=== PATIENT | male | born 1995 | race American Indian/Alaskan Native ===

== ENCOUNTER 2016-10-14 00:09 | Emergency (ER) | payer SELFPAY ==
[2016-10-14] MEDS ORDERED: KETALAR ONE (00:37)
[2016-10-14] MEDS ORDERED: ZOFRAN IV ONE (00:37)
[2016-10-14] MEDS ORDERED: NACL 0.9% 500 ML 500 ML IV ONE (00:37)
[2016-10-14] MEDS ORDERED: DIPRIVAN 10 MG/ML IV ONE ×3 (00:37→00:50)
[2016-10-14] MEDS ORDERED: KETALAR IV ONE (00:37)
--- NOTE | 2016-10-14 00:39 | Emergency Department Report ---
Upper Extremity - [facility] Chief Complaint: Extremity Injury, Upper Stated Complaint: SHOULDER DISLOCATION Time Seen by Provider: 10/14/16 00:28 Upper Extremity: Right Shoulder Occurred When: Today Mechanism: Twist Severity: severe Symptoms: Yes Pain with Movement, Yes Deformity, Yes Limited Range of Movement, No Numbness, No Weakness, No Swelling, No Bruising/Ecchymosis, No Laceration or Abrasion Other History: This is a 20-year-old male. He is left-hand dominant. He has a history of recurrent shoulder dislocations. He reports for spontaneous shoulder dislocations within the past year. He presents to the ER with right- sided shoulder dislocation. Patient reports that he got up, and felt his arm popped out. There is no trauma. ED Review of Systems ROS: Stated complaint: SHOULDER DISLOCATION Other details as noted in HPI ED Past Medical Hx - Past Medical History Previous Medical History?: Yes Additional medical history: RIGHT SHOULDER DISLOCATION - Surgical History Past Surgical History?: No - Social History Smoking Status: Never Smoker Substance Use Type: None - Medications Home Medications: Home Medications Medication Instructions Recorded Confirmed Last Taken Type Ibuprofen [Motrin] 600 mg PO Q8H PRN #30 tablet 10/14/16 Unknown Rx Upper Extremity Exam - Exam General: Vital signs noted. No distress. Alert and acting appropriately. Head and Torso: No HEENT Abnormality, No Neck Tenderness, No Chest/Lungs Abnormality, No Abdominal Tenderness, No Back Tenderness Shoulder Exam: Yes Shoulder Tenderness, Yes Shoulder Deformity, No Clavicle Tenderness, No Normal Range of Motion in Shoulder, No AC Joint Tenderness Arm Exam: No Arm/Humerus Tenderness, No Arm Deformity Elbow: Yes Normal Range of Motion in Elbow, No Elbow Tenderness, No Elbow Deformity Forearm: No Forearm Tenderness, No Forearm Deformity, No Pain with Pronation, No Pain with Supination Wrist: Yes Normal ROM in Wrist, No Wrist Tenderness, No Wrist Deformity, No Snuffbox Tenderness, No Pain with Axial Thumb Compression Hand: Yes Normal ROM in Digit(s), No Hand Tenderness, No Hand Deformity, No Digit Tenderness, No Digit(s) Deformity, No Tendon Dysfunction CMS Exam: No Broken Skin, No Normal Distal Pulses, No Normal Capillary Refill, No Normal Distal Sensation ED Course Vital Signs 10/14/16 00:16 Temperature 97.3 F L Pulse Rate 72 Respiratory 18 Rate Blood Pressure 106/65 O2 Sat by Pulse 98 Oximetry - Reevaluation(s) Reevaluation #1: 10/14/16 01:09 differential diagnosis: Shoulder dislocation Assessment and plan: 20-year-old male with recurrent spontaneous right sided shoulder dislocation. He is afebrile, with reassuring vital signs, and on his initial examination, he has 2+ pulses noted in the bilateral upper extremities, sensation is intact to the deltoid, median, radial, ulnar distribution. He is verbally and written consented for moderate sedation with closed reduction. He is given ketamine, and propofol as per sedation sheet, and sedation time is from 12:54 AM TO 12:56 AM. The shoulder was reduced by myself with 1 attempt, with no obvious difficulty, and the patient tolerated the procedure well. He is currently sedated, and on a monitor. Reevaluation #2: 10/14/16 02:12 patient is reexamined. Range of motion remains intact in the hand and wrist. Sensation and strength remain intact. He will be discharged with his girlfriend. Vital signs stable. - Moderate Sedation Indications: diagnostic imaging proced Presedation Evaluation: ASA 1 ASA Class: I Mallampati Airway Score: 1 Preparation: lunchroom monitor applied, pulse oximeter, capnometry used, supplemental O2 applied, suction/airway equipment at bedside, IV secured Ketamine: IV Ketamine Dose: 30 IV Propofol Dose (mgs): 50 Complications: none Patient Tolerated Procedure: well - Orthopedic Joint Reduction Joint #1 Consent Obtained: verbal consent, written consent, emergent situation Time Out Performed: Yes Side: right Joint Reduction Location: shoulder Analgesia: moderate sedation Shoulder Technique Used (if applicable): scapula manipulation Post-Reduction Neuro Exam: intact Post-Reduction Vascular Exam: intact Post Reduction X-Ray Obtained: Yes Post Reduction X-Ray Results: reduced Splint Applied: Yes Patient Tolerated Procedure: well ED Medical Decision Making - Lab Data Vital Signs 10/14/16 10/14/16 10/14/16 00:16 00:54 00:56 Temperature 97.3 F L Pulse Rate 72 Pulse Rate [ 86 Intra-Procedure ] Pulse Rate [Pre 84 -Procedure] Respiratory 18 Rate Respiratory 20 Rate [Intra- Procedure] Respiratory 20 Rate [Pre- Procedure] Blood Pressure 106/65 Blood Pressure 121/76 [Intra- Procedure] Blood Pressure [Left] Blood Pressure 110/67 [Pre-Procedure] O2 Sat by Pulse 98 Oximetry O2 Sat by Pulse 98 Oximetry [ Intra-Procedure ] O2 Sat by Pulse 99 Oximetry [Pre- Procedure] 10/14/16 10/14/16 10/14/16 01:00 01:15 01:30 Temperature Pulse Rate 75 76 71 Pulse Rate [ Intra-Procedure ] Pulse Rate [Pre -Procedure] Respiratory 20 10 L 8 L Rate Respiratory Rate [Intra- Procedure] Respiratory Rate [Pre- Procedure] Blood Pressure Blood Pressure [Intra- Procedure] Blood Pressure 106/63 123/68 105/63 [Left] Blood Pressure [Pre-Procedure] O2 Sat by Pulse 98 98 99 Oximetry O2 Sat by Pulse Oximetry [ Intra-Procedure ] O2 Sat by Pulse Oximetry [Pre- Procedure] 10/14/16 10/14/16 01:39 02:35 Temperature Pulse Rate 85 68 Pulse Rate [ Intra-Procedure ] Pulse Rate [Pre -Procedure] Respiratory 12 16 Rate Respiratory Rate [Intra- Procedure] Respiratory Rate [Pre- Procedure] Blood Pressure Blood Pressure [Intra- Procedure] Blood Pressure 96/50 [Left] Blood Pressure [Pre-Procedure] O2 Sat by Pulse 100 Oximetry O2 Sat by Pulse Oximetry [ Intra-Procedure ] O2 Sat by Pulse Oximetry [Pre- Procedure] - Radiology Data Radiology results: image reviewed interpreted by me: X-ray #1 demonstrates right-sided shoulder dislocation. X-ray #2 demonstrates appropriate reduction of shoulder dislocation. Critical care attestation.: If time is entered above; I have spent that time in minutes in the direct care of this critically ill patient, excluding procedure time. ED Disposition Clinical Impression: Shoulder dislocation Disposition: DC-01 TO HOME OR SELFCARE Is pt being admited?: No Does the pt Need Aspirin: No Condition: Stable Instructions: Shoulder Dislocation (ED) Additional Instructions: Shoulder sling should stay on the right upper extremity until cleared by an orthopedic surgeon or primary care doctor. With multiple recurrent shoulder dislocations, the patient is at risk for ligamentous and soft tissue injury. Follow-up with an orthopedic surgeon within the next week. Dr. Pagan is a local orthopedic surgeon. Return to the ER right away with new pain, worsened pain, migration of pain, fevers, chills, weakness, numbness, confusion, chest pain or shortness of breath. Take acetaminophen every 4 hours as needed for pain, this can be alternated with ibuprofen every 6 hours with food as needed for pain. Prescriptions: Ibuprofen [Motrin] 600 mg PO Q8H PRN #30 tablet PRN Reason: Pain Referrals: ALCON PAGAN MD [Staff Physician] - 3-5 Days Forms: Work/School Release Form(ED)
[2016-10-14 02:45] VITALS: BP 96/50
--- NOTE | 2016-10-14 07:41 | XRay Report ---
Right shoulder: Pain, deformity AP and lateral projections included. There is an anterior dislocation of the humerus head. No fracture deformity identified. Right shoulder: Postreduction. AP view view. The humerus is well-positioned in the glenoid fossa. No fracture deformity noted.
== END 2016-10-14 02:40 | disposition home or self-care (01) ==
LOC: ED 00:09
DX: S43.004A Unspecified dislocation of right shoulder joint, initial encounter (principal); X58.XXXA Exposure to other specified factors, initial encounter; Y93.89 Activity, other specified; Y99.9 Unspecified external cause status; Y92.89 Other specified places as the place of occurrence of the external cause
CPT/HCPCS: 23650; 73020; 73030; 96374; 96375; 99285; J2405; J2704; J7040

== ENCOUNTER 2017-04-09 01:52 | Emergency (ER) | payer OTHER ==
[2017-04-09] MEDS ORDERED: TORADOL IV ONE (03:15)
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
--- NOTE | 2017-04-09 03:32 | XRay Report ---
FINAL REPORT EXAM: XR SHOULDER 2+V RT HISTORY: Injury COMPARISON: None available. FINDINGS: Two views of right shoulder obtained. There is anterior inferior dislocation of the humeral head. Mild Hill-Sachs deformity. Glenoid rim is grossly preserved. AC joint preserved. IMPRESSION: Anterior inferior dislocation of the humeral head with mild Hill-Sachs deformity.
[2017-04-09] MEDS ORDERED: TORADOL ONE (03:40)
[2017-04-09] MEDS ORDERED: AMIDATE IV ONE ×2 (03:52→04:01)
[2017-04-09] MEDS ORDERED: NACL 0.9% 1000 ML 1,000 ML ONE (05:17)
[2017-04-09 06:01] VITALS: BP 102/63
[2017-04-09] MEDS ORDERED: NACL 0.9% 1000 ML 1,000 ML IV ONE (06:01)
--- NOTE | 2017-04-09 07:21 | XRay Report ---
FINAL REPORT PROCEDURE: XR SHOULDER 1V RT TECHNIQUE: RIGHT shoulder radiograph, single frontal view. HISTORY: status post reduction COMPARISON: No prior studies are available for comparison. FINDINGS: Fracture(s): None. Joint space(s): Normal. Soft tissues: Normal. Bone mineralization: Normal. Foreign bodies: None. IMPRESSION: Normal alignment of the glenohumeral joint. There is no fracture or dislocation.
== END 2017-04-09 06:34 | disposition home or self-care (01) ==
LOC: ED 01:52
DX: S43.004A Unspecified dislocation of right shoulder joint, initial encounter (principal); X58.XXXA Exposure to other specified factors, initial encounter; Y93.89 Activity, other specified; Y92.89 Other specified places as the place of occurrence of the external cause; Y99.8 Other external cause status
CPT/HCPCS: 23650; 73020; 73030; 96361; 96374; 96375; 99283; J1885; J7030

== ENCOUNTER 2017-11-09 10:19 | Emergency (ER) | payer OTHER ==
--- NOTE | 2017-11-09 11:26 | Emergency Department Report ---
Upper Extremity - HPI Chief Complaint: Shoulder Injury Stated Complaint: DISLOCATED RIGHT SHOULDER Time Seen by Provider: 11/09/17 11:21 Upper Extremity: Right Shoulder Occurred When: Today Mechanism: Fall Severity: severe Symptoms: Yes Pain with Movement, Yes Deformity, Yes Limited Range of Movement, No Numbness, No Weakness, No Swelling, No Bruising/Ecchymosis, No Laceration or Abrasion Other History: She is a 21-year-old male who presents to emergency room with complaints of right shoulder pain. Patient states his right shoulder is dislocated. Patient has had this 6-7 times in the past. Patient states the pain is a 10 out of 10. Patient describes the pain as a sharp pain and is nonradiating. Patient denies allergies to medications. Patient denies ever physically physical symptoms ED Review of Systems ROS: Stated complaint: DISLOCATED RIGHT SHOULDER Other details as noted in HPI Constitutional: denies: chills, fever Eyes: denies: eye pain, eye discharge, vision change ENT: denies: ear pain, throat pain Respiratory: denies: cough, shortness of breath, wheezing Cardiovascular: denies: chest pain, palpitations Endocrine: no symptoms reported Gastrointestinal: denies: abdominal pain, nausea, diarrhea Genitourinary: denies: urgency, dysuria Musculoskeletal: denies: back pain, joint swelling, arthralgia Skin: denies: rash, lesions Neurological: denies: headache, weakness, paresthesias Psychiatric: denies: anxiety, depression Hematological/Lymphatic: denies: easy bleeding, easy bruising ED Past Medical Hx - Past Medical History Previous Medical History?: Yes Additional medical history: RIGHT SHOULDER DISLOCATION X 6 - Surgical History Past Surgical History?: Yes - Family History Family history: no significant - Social History Smoking Status: Never Smoker Substance Use Type: None - Medications Home Medications: Home Medications Medication Instructions Recorded Confirmed Last Taken Type Ibuprofen [Motrin] 600 mg PO Q8H PRN #30 tablet 10/14/16 Unknown Rx Cyclobenzaprine [Flexeril] 10 mg PO TID PRN #10 tablet 04/09/17 Unknown Rx HYDROcodone/APAP 5-325 [[place] 1 - 2 each PO Q6HR PRN #10 tablet 04/09/17 Unknown Rx 5/325] Ibuprofen [Motrin 800 MG tab] 800 mg PO Q8HR PRN #20 tablet 11/09/17 Unknown Rx Tramadol HCl [Ultram] 50 mg PO Q6HR PRN #20 tablet 11/09/17 Unknown Rx Upper Extremity Exam - Exam General: Vital signs noted. No distress. Alert and acting appropriately. Head and Torso: No HEENT Abnormality, No Neck Tenderness, No Chest/Lungs Abnormality, No Abdominal Tenderness, No Back Tenderness Shoulder Exam: Yes Shoulder Tenderness, Yes Shoulder Deformity, No Clavicle Tenderness, No Normal Range of Motion in Shoulder, No AC Joint Tenderness Arm Exam: No Arm/Humerus Tenderness, No Arm Deformity Elbow: Yes Normal Range of Motion in Elbow, No Elbow Tenderness, No Elbow Deformity Forearm: No Forearm Tenderness, No Forearm Deformity, No Pain with Pronation, No Pain with Supination Wrist: Yes Normal ROM in Wrist, No Wrist Tenderness, No Wrist Deformity, No Snuffbox Tenderness, No Pain with Axial Thumb Compression Hand: No Hand Tenderness, No Hand Deformity, No Digit Tenderness, No Normal ROM in Digit(s), No Digit(s) Deformity, No Tendon Dysfunction CMS Exam: Yes Normal Distal Pulses, Yes Normal Capillary Refill, Yes Normal Distal Sensation, No Broken Skin ED Course Vital Signs 11/09/17 11/09/17 10:27 10:36 Temperature 98.4 F Pulse Rate 54 L Respiratory 16 16 Rate Blood Pressure 111/74 O2 Sat by Pulse 100 100 Oximetry - Reevaluation(s) Reevaluation #1: X-ray shows a inferior dislocation. We will do a sedation with patient and reduce shoulder and do a postreduction x-ray 11/09/17 11:27 Right shoulder reduced. See procedure note for conscious sedation and reduction 11/09/17 12:03 Reevaluation #2: Postreduction and post-conscious sedation, patient found to be hypotensive and bradycardic. We'll give patient 2 mg Narcan and continue to monitor. 11/09/17 12:26 Reevaluation #3: Patient is lethargic but arousable. Patient answers questions appropriately. 11/09/17 13:16 Reevaluation #4: Impression resting. Patient arousable and answers all questions appropriately. We'll continue to monitor and adjust treatment when necessary 11/09/17 15:04 Reevaluation #5: Patient back to baseline. Patient 4. Patient awake and alert. Patient stable for discharge. We'll discharge patient home with discharge instructions to follow up with primary care and orthopedics. Patient also given return to ER precautions. 11/09/17 16:23 - Moderate Sedation Indications: fracture/dislocation redu ASA Class: I Mallampati Airway Score: 1 Preparation: conveyor monitor applied, pulse oximeter, capnometry used, supplemental O2 applied, reversal agents at bedside, suction/airway equipment at bedside, IV secured Fentanyl: IV Midazolam: IV IV Etomidate Dose (mgs): 5 Reversal Agents Used: Naloxone Complications: hypotension Interventions: oxygen applied, use of reversal agent Patient Tolerated Procedure: well - Orthopedic Joint Reduction Joint #1 Consent Obtained: verbal consent Time Out Performed: Yes Side: right Joint Reduction Location: shoulder Analgesia: moderate sedation Shoulder Technique Used (if applicable): external rotation Technique Used: direct manipulation Post-Reduction Neuro Exam: intact Post-Reduction Vascular Exam: intact Post Reduction X-Ray Obtained: Yes Post Reduction X-Ray Results: reduced Splint Applied: Yes Patient Tolerated Procedure: well ED Medical Decision Making - Radiology Data Radiology results: report reviewed interpreted by me: First x-ray positive for dislocation. Post reduction film shows shoulder in place RIGHT SHOULDER, ONE VIEW History: Shoulder reduction Findings: The right shoulder dislocation has been reduced since 1041 hrs. Alignment is anatomic. There is suggestion of a Hill-Sachs deformity on the lateral humeral head. The remainder of the examination is unremarkable. Impression: Anatomic alignment at the right shoulder. Transcribed By: TTR Dictated By: MEDINA HIDALGO JR, MD Electronically Authenticated By: MEDINA HDIALGO JR, MD Signed Date/Time: 11/09/17 1226 - Medical Decision Making She is a 21-year-old male presents emergency room with right shoulder pain. Patient found to have a shoulder dislocation. Patient had his shoulder reduced after conscious sedation. Patient was monitored in the ER until returned to baseline. - Differential Diagnosis shoulder pain. Shoulder dislocation. Fracture Critical care attestation.: If time is entered above; I have spent that time in minutes in the direct care of this critically ill patient, excluding procedure time. ED Disposition Clinical Impression: Shoulder pain, right Qualifiers: Chronicity: acute Qualified Code(s): M25.511 - Pain in right shoulder Shoulder dislocation Qualifiers: Encounter type: initial encounter Laterality: right Qualified Code(s): S43.004A - Unspecified dislocation of right shoulder joint, initial encounter Disposition: TO HOME OR SELFCARE Is pt being admited?: No Does the pt Need Aspirin: No Condition: Stable Instructions: Shoulder Dislocation (ED), Shoulder Sprain (ED) Additional Instructions: Patient to follow up with primary care in 2-3 days. Patient to follow up with orthopedist in 2-[address] Pagan's information. Patient to return to ER if condition worsens. Patient to take Tylenol and ibuprofen when necessary for pain. Patient to rest. Patient to avoid strenuous exercise or movements. Patient to avoid lifting. Patient to rest. Patient to increase water. Prescriptions: Ibuprofen [Motrin 800 MG tab] 800 mg PO Q8HR PRN #20 tablet PRN Reason: Pain Tramadol HCl [Ultram] 50 mg PO Q6HR PRN #20 tablet PRN Reason: Pain , Severe (7-10) Referrals: PRIMARY CAREMD [Primary Care Provider] - 2-3 Days ALCON PAGAN MD [Staff Physician] - 2-3 Days Time of Disposition: 16:26
[2017-11-09] MEDS ORDERED: VERSED IV ONE ×4 (11:27→11:46)
[2017-11-09] MEDS ORDERED: SUBLIMAZE ONE ×2 (11:28→11:44)
[2017-11-09] MEDS ORDERED: NACL 0.9% 1000 ML 1,000 ML ONE ×2 (11:29→12:50)
[2017-11-09] MEDS ORDERED: SUBLIMAZE IV ONE ×2 (11:32→11:43)
[2017-11-09] MEDS ORDERED: ZOFRAN IV ONE (11:36)
[2017-11-09] MEDS ORDERED: ZOFRAN ONE (11:39)
[2017-11-09] MEDS ORDERED: TORADOL IV ONE (11:42)
[2017-11-09] MEDS ORDERED: TORADOL ONE (11:44)
[2017-11-09] MEDS ORDERED: AMIDATE IV ONE ×2 (11:50→11:53)
[2017-11-09] MEDS ORDERED: ROMAZICON IV ONE (11:51)
[2017-11-09] MEDS ORDERED: NARCAN 2 MG/2 ML ONE (11:51)
--- NOTE | 2017-11-09 11:57 | XRay Report ---
RIGHT SHOULDER, ONE VIEW History: Deformity, shoulder pain Findings: An anterior, inferior dislocation is identified at the right glenohumeral joint. No obvious associated fracture. The remainder of the examination is within normal limits. Impression: Right shoulder dislocation.
[2017-11-09] MEDS ORDERED: NARCAN 2 MG/2 ML IV ONE ×2 (12:14→12:28)
--- NOTE | 2017-11-09 12:32 | XRay Report ---
RIGHT SHOULDER, ONE VIEW History: Shoulder reduction Findings: The right shoulder dislocation has been reduced since 1041 hrs. Alignment is anatomic. There is suggestion of a Hill-Sachs deformity on the lateral humeral head. The remainder of the examination is unremarkable. Impression: Anatomic alignment at the right shoulder.
[2017-11-09 15:00] VITALS: BP 104/62
== END 2017-11-09 16:37 | disposition home or self-care (01) ==
LOC: ED 10:19
DX: S43.004A Unspecified dislocation of right shoulder joint, initial encounter (principal); X58.XXXA Exposure to other specified factors, initial encounter; Y93.89 Activity, other specified; Y99.8 Other external cause status; Y92.89 Other specified places as the place of occurrence of the external cause
CPT/HCPCS: 23655; 29105; 73020; 96374; 96375; 99284; J1885; J2250; J2310; J2405; J3010; J7030